=== PATIENT | female | born 1990 | race Caucasian/White ===

== ENCOUNTER → 2016-10-05 | Outpatient (CLI) | payer BC ==
[~2016-10-05] MED LIST: ALBU1AER9 INH; CETI10TA84 PO; CHOL100010 PO; DIPH25CA65 PO; DIPHCRE TOP; ETONMIS VAGRING; FLUT0.15 NAE; LACTCAP3 PO; MOME0.1C33 TOP
== END | disposition home or self-care (01) ==
LOC: C.PAPS 12:12
PROVIDERS: ATTEND Obstetrics & Gynecology
DX: Z01.419 Encounter for gynecological examination (general) (routine) without abnormal findings (principal)

== ENCOUNTER → 2017-11-09 | Outpatient (CLI) | payer OTHER ==
[~2017-11-09] MED LIST changes: -DIPHCRE TOP; +DIPHCRE11 TOP
== END | disposition home or self-care (01) ==
LOC: C.LABSPEC 17:53
PROVIDERS: ATTEND Physician Assistant
DX: Z11.3 Encounter for screening for infections with a predominantly sexual mode of transmission (principal)

== ENCOUNTER → 2017-11-09 | Outpatient (CLI) | payer OTHER | END | disposition home or self-care (01) | LOC: C.PAPS 10:15 | PROVIDERS: ATTEND Physician Assistant | DX: Z01.419 Encounter for gynecological examination (general) (routine) without abnormal findings (principal) ==

== ENCOUNTER → 2018-02-03 | Outpatient (CLI) | payer OTHER ==
--- NOTE | 2018-02-03 12:01 | DIAGNOSTIC IMAGING REPORT ---
R KNEE 4 OR MORE VIEWS CLINICAL HISTORY: 27 years-old Female presenting with M25.561 Right knee pain WITH A VIEW WITH [id number], knee buckled last night. TECHNIQUE: Frontal, sunrise, tunnel, and lateral views of the right knee were obtained. COMPARISON: None. FINDINGS: Knee joint congruent. No patellar subluxation. No significant joint effusion. No acute fracture or malalignment. No advanced degenerative change. No radiographic soft tissue abnormality. IMPRESSION: No acute osseous injury. Electronically signed by: Henrik Coronado M.D. 02/03/2018 12:00 PM Dictated Date/Time: 02/03/2018 11:59 AM
== END | disposition home or self-care (01) ==
LOC: C.RAD1850 10:40
PROVIDERS: ATTEND Internal Medicine
DX: M25.561 Pain in right knee (principal)

== ENCOUNTER 2021-03-22 08:02 | Inpatient (IN) ==
[2021-03-22] MEDS ORDERED: OXYTOCIN 30 UNITS/500 ML BAG IV PRN ×2 (08:09→17:35)
--- NOTE | 2021-03-22 08:22 | History & Physical Report ---
Date of Service March 22, 2021 Assessment & Plan Admission and Anticipated Discharge Date Admission Date: March 22, 2021 IUP at 39+ weeks in active labor patient would like an unmedicated if possible see orders continue monitoring for now because of variable deceleration on initial assessment. History of Present Illness Primary Care Provider: NO PCP Patient is a 31 yo white female EDC 03/24/21 who presents with regular contractions which have been getting closer and stronger for several hours. Ctns started at 2300 last night. (+) blood show (-)SPROM. uncomplicated. GBS negative Allergies Allergy/AdvReac Type Severity Reaction Status Date / Time Penicillins Allergy Intermediate RASH Verified 03/19/21 15:10 Home Medications Medication Instructions Recorded Confirmed Type Juice Plus 16 tabs PO DAILY 11/27/20 03/19/21 History famotidine 20 mg PO BID #20 tab 11/27/20 03/19/21 Rx ondansetron 4 mg PO Q6H PRN #14 tab 11/27/20 03/19/21 Rx prenat.vits,obi,icz-mfud-fxlyk 1 tab PO DAILY 11/27/20 03/19/21 History [ Vitamin] Patient History Medical History Abdominal pain Encounter for gynecological examination without abnormal finding Encounter for IUD removal Nausea and vomiting during Surgical History S/P tooth extraction Family History Family/Other Myocardial infarction Father Hypertension Kidney disease Aunt Uterus cancer Paternal Aunt, Dx at age 46 Denies family history of Pancreatic cancer Ovarian cancer Prostate cancer Diabetes Breast cancer Colorectal cancer Social History Smoking Status: Never smoker Hx Alcohol Use: Yes Hx Substance Use: No Preferred Language: Latvian Communication Ability: Effective Visual Impairment: No Limitations Hearing Ability: Normal Water Quality Specialist Required: No marital status: marital status details: Aramis (30) [phone] Current Living Situation: Spouse Current Living Situation Comment: lives with spouse, 2 children. current occupational status: employed current occupation: [employer] Feels Safe at Home: Yes Childhood Exposure to Second-Hand Smoke: No Dental Care, Regularly: Yes Physical Activity Frequency: Other Seatbelt Use: always Sunscreen Use: Yes Sexual Activity: has been sexually active within the last 12 months Review of Systems All systems reviewed & are unremarkable except as noted in HPI & below Physical Exam Constitutional: WD/WN, vitals as above Respiratory: normal respiratory effort, lungs clear to auscultation Cardiovascular: RRR, no murmur, no edema Gastrointestinal (Abdomen): normal bowel sounds, soft, nontender, no hepatosplenomegaly Psychiatric: A+Ox3, euthymic affect Genitourinary: OB Exam Abdomen: + vertex and + estimated weight (7-8 pounds) Manual OB Exam: + cervical dilation 5 cm, + cervical effacement 90% and + station (posterior) -1 OB Exam Monitor Tracing: + external FHT monitor used, + external uterine monitor used, + category II (one moderate variable with quick recovery during a contraction) and + normal FHT variability Coding Level of Care Code None
[2021-03-22 08:34] LABS: Hematocrit (blood only) 38.9 % (37-47); Mean Corpuscular Hemoglobin 26.9 pg (25-34); Mean Corpuscular Hgb Conc 33.4 g/dL (32-36); Mean Corpuscular Volume 80.5 fL (80-100); Mean Platelet Volume 10.4 fL (7.4-10.4); Platelet Count 301 K/uL (130-400); RDW Coefficient of Variation 14.2 % (11.5-14.5); RDW Standard Deviation 41.9 fL (36.4-46.3); Red Blood Count 4.83 M/uL (4.2-5.4); White Blood Count 12.48 K/uL (4.8-10.8)
--- NOTE | 2021-03-22 13:03 | Obstetrical Progress Note ---
Date of Service March 22, 2021 Assessment & Plan Admission and Anticipated Discharge Date Admission Date: March 22, 2021 continue current plan Subjective SPROM for clear fluid contractions stronger requesting to be checked Review of Systems Review of Systems: All systems reviewed & are unremarkable except as noted in HPI & below Physical Exam Constitutional: WD/WN, vitals as above Psychiatric: A+Ox3, euthymic affect Genitourinary: OB Exam Abdomen: + estimated weight (7-8 pounds) Manual OB Exam: + cervical dilation 5 cm, + cervical effacement 100%, + station -2 and + amniotic fluid clear forewaters present- patient agreeable to AROM- large amount of clear fluid Results & Data ([facility]) Vital Signs (Past 12 Hours) Vital Signs Temp Pulse Resp BP 03/22/21 12:15 98.1 F 101 H 16 133/87 03/22/21 08:56 20 03/22/21 08:54 98 H 20 126/77 PG Care Time/CCT Total # of Minutes Spent Total Time Spent with Patient: Total time spent is greater than 50% in coordination of care (as documented) at patient's floor/unit and/or counseling patient: Coding Level of Care Code None
[2021-03-22] MEDS: LACTATED RINGER'S 1,000 ML IV PRN ×2 (14:04→15:19)
[2021-03-22] MEDS ORDERED: fentaNYL 2MCG/ML ROPIVACAINE 1.25MG/ML 100 ML BAG EPI ONE (14:07)
[2021-03-22] MEDS ORDERED: SODIUM CHLORIDE 0.9% INJ 10 ML VIAL ONE (14:07)
[2021-03-22] MEDS ORDERED: BUPIVACAINE 0.25% 30 ML VIAL ONE (14:07)
[2021-03-22] MEDS ORDERED: fentaNYL citrate 100 MCG/2 ML VIAL ONE (14:07)
[2021-03-22] MEDS ORDERED: ePHEDrine sulfate 50 MG/ML AMP ONE (14:07)
--- NOTE | 2021-03-22 15:12 | Anesthesiology Consultation ---
Date of Service March 22, 2021 Assessment & Plan Chart Review Chart Review: Acceptable Risk for Labor Epidural Consults Requested none History Height/Weight Height: 5 ft 4 in Weight: 84.55 kg Allergies Allergy/AdvReac Type Severity Reaction Status Date / Time Penicillins Allergy Intermediate RASH Verified 03/19/21 15:10 Medications Home Medications Medication Instructions Recorded Confirmed Last Taken Juice Plus 16 tabs PO DAILY 11/27/20 03/22/21 03/21/21 08:00 famotidine 20 mg PO BID #20 tab 11/27/20 03/22/21 03/18/21 20:00 ondansetron 4 mg PO Q6H PRN #14 tab 11/27/20 03/22/21 03/01/21 08:00 Active Medications Generic Name Dose Route Start Last Admin Trade Name Freq PRN Reason Stop Dose Admin Lactated Ringer's 1,000 mls @ 125 mls/hr 03/22/21 08:09 03/22/21 14:04 Lr IV 03/24/21 08:08 999 mls/hr .Q8H PRN Administration L&D Protocol Protocol Past Medical History Medical History Abdominal pain Diverticulitis (~11/27/20) Encounter for gynecological examination without abnormal finding Encounter for IUD removal Nausea and vomiting during Past Family History Family History Family/Other Myocardial infarction Father Hypertension Kidney disease Aunt Uterus cancer Paternal Aunt, Dx at age 46 Denies family history of Pancreatic cancer Ovarian cancer Prostate cancer Diabetes Breast cancer Colorectal cancer Past Surgical History Surgical History S/P tooth extraction Social History Smoking Status: Never smoker Do You Dip or Chew Tobacco: No Hx Alcohol Use: No Hx Substance Use: No substance use type: does not use Physical Exam Vital Signs Last Vital Signs Temp 36.8 C 03/22/21 13:18 Pulse 107 H 03/22/21 15:08 Resp 16 03/22/21 12:15 BP 124/80 03/22/21 15:08 Pulse Ox 100 03/22/21 15:07 Testing Laboratory Results 03/22/21 08:15
[2021-03-22] MEDS ORDERED: fentaNYL 2MCG/ML ROPIVACAINE 1.25MG/ML 100 ML BAG EPI PRN (15:14)
[2021-03-22] MEDS ORDERED: diphenhydrAMINE 50 MG/ML VIAL IV PRN (15:14)
[2021-03-22] MEDS ORDERED: NALOXONE HCL 1 MG in SODIUM CHLORIDE 0.9% 1000ML 1,000 ML IV PRN (15:14)
[2021-03-22] MEDS ORDERED: NALOXONE HCL 0.4 MG/1 ML VIAL/CARP IV PRN (15:14)
[2021-03-22] MEDS ORDERED: ePHEDrine sulfate 50 MG/ML AMP IV PRN (15:14)
[2021-03-22] MEDS ORDERED: SUPERCREAM 0.870% 15 GM JAR EXT PRN (17:35)
[2021-03-22] MEDS ORDERED: HYDROCORTISONE ACETATE 25 MG SUPP PR PRN (17:35)
[2021-03-22] MEDS ORDERED: DIPHTHERIA/TETANUS/PERTUSSIS 0.5 ML SYR/VIAL IM ONE (17:35)
[2021-03-22] MEDS ORDERED: bisacodyL 10 MG SUPP PR PRN (17:35)
[2021-03-22] MEDS ORDERED: BENZOCAINE 20% AER SPR 82.5 GM CAN EXT PRN (17:35)
--- NOTE | 2021-03-22 20:08 | Anesthesia Procedure Note ---
Date of Service March 22, 2021 Anesthesia Post Epidural Note Vital Signs Vital Signs: Temp Pulse Resp BP Pulse Ox 36.7 C 113 H 18 123/67 99 03/22/21 17:30 03/22/21 19:32 03/22/21 17:30 03/22/21 19:32 03/22/21 18:27 Pain Intensity Bilateral Back: Pain Intensity: 6 Notes Mental Status: alert / awake / arousable Nausea / Vomiting: adequately controlled Pain: adequately controlled Airway Patency, RR, SpO2: stable & adequate BP & HR: stable & adequate Hydration State: stable & adequate Neuraxial Anesthesia: was administered and sensory block is resolving Anesthetic Complications: no major complications apparent and Pt Satisfied with anesthetic care Epidural: Removed without complications and With tip intact
[2021-03-22] MEDS: IBUPROFEN 600 MG TAB PO PRN (21:07)
[2021-03-22] MEDS: DOCUSATE SODIUM 100 MG CAP PO SCH (21:07)
[2021-03-22] MEDS: ACETAMINOPHEN 325 MG TAB PO PRN (23:59)
[2021-03-23] MEDS: IBUPROFEN 600 MG TAB PO PRN ×2 (06:47→13:24)
--- NOTE | 2021-03-23 07:50 | Obstetrical Progress Note ---
Date of Service March 23, 2021 Assessment & Plan (1) Encounter for care and examination after delivery: 31yo Day 1 s/p . Doing well. Stable for discharge Subjective Ambulation: ambulating normally Voiding: no voiding problems Passing Gas:: Yes Diet Tolerance:: regular diet Lochia:: Moderate Feeding Type:: breast feeding Physical Exam Constitutional WD/WN, vitals as above Respiratory normal respiratory effort; no respiratory distress and no labored breathing Gastrointestinal (Abdomen) Inspection/Auscultation: abdomen normal to inspection; abdomen not distended Percussion/Palpation: abdomen soft; abdomen nontender, no guarding and abdomen not rigid Genitourinary OB Exam Abdomen: + fundal height Fundus: + firm and + relation to umbilicus (Below); not tender and not boggy Results & Data ([facility]) Vital Signs (Past 12 Hours) Vital Signs Temp Pulse Resp BP Pulse Ox 03/23/21 04:10 36.7 C 80 18 112/75 03/22/21 23:45 36.9 C 71 18 117/70 03/22/21 19:55 36.9 C 95 H 18 129/78 98
[2021-03-23] MEDS: DOCUSATE SODIUM 100 MG CAP PO SCH (07:52)
[2021-03-23] MEDS ORDERED: PRENATAL VITAMIN 1 TAB PO SCH (08:00)
--- NOTE | 2021-03-23 08:05 | Delivery Summary ---
DATE OF PROCEDURE: 03/22/2021. PROCEDURE: Normal spontaneous vaginal delivery. SURGEON: Marck Simon MD PREOPERATIVE DIAGNOSES: 1. Single intrauterine at 39 weeks 5 days gestational age. 2. Spontaneous labor. POSTOPERATIVE DIAGNOSES: 1. Single intrauterine at 39 weeks 5 days gestational age. 2. Spontaneous labor. 3. Status post procedure. ESTIMATED BLOOD LOSS: 200 mL. DRAINS: None. FLUIDS: Continuous lactated Ringer. URINE OUTPUT: Not measured. COMPLICATIONS: None. FINDINGS: Viable female with weight and Apgars pending. DESCRIPTION OF PROCEDURE: The patient progressed to 10 cm dilated, 100% effaced, positive 2 station, pushed over intact perineum over approximately 7 contractions to achieve delivery. Head of the neon ate delivered in KELLY position, rest to right transverse. A loose nuchal cord x1 was noted, which was easily reduced and body and shoulders quickly followed. was noted to be vigorous upon deliv ivan and a 1-minute delayed cord clamping was initiated. Cord was doubly clamped and cut. Cord blood was obtained. Attention was then turned to delivery of the placenta, which was delivered intact wit h 3-vessel cord, gentle cord traction. On inspection of the perineum, vagina, and cervix, there were noted to be no lacerations. Needle, sponge, and instrument counts were correct at the completion of the case. Both mother and were stable in the immediate post-delivery period. Job ID: [id number]
[2021-03-23] MEDS: ACETAMINOPHEN 325 MG TAB PO PRN (16:35)
[2021-03-23] MEDS ORDERED: bisacodyL 5 MG TABEC PO SCH (20:00)
== END 2021-03-23 18:10 | disposition home or self-care (01) | DRG 807 ==
LOC: OPB 08:02 → 4S1 08:03 → 4S2 20:05

== ENCOUNTER 2024-12-28 16:39 | Inpatient (IN) ==
[2024-12-28] MEDS ORDERED: OXYTOCIN 30 UNITS/NSS 30 UNITS/500 ML BAG IV PRN (16:56)
[2024-12-28] MEDS ORDERED: LIDOCAINE 1% LOCAL 20 ML VIAL INFIL PRN (16:56)
[2024-12-28] MEDS: LACTATED RINGER'S 1,000 ML IV PRN (17:06)
[2024-12-28 17:26] LABS: Hematocrit (blood only) 41.4 % (37.0-47.0); Hemoglobin 13.8 g/dl (12.0-16.0); Mean Corpuscular Hemoglobin 27.7 pg (25.0-34.0); Mean Corpuscular Hgb Conc 33.3 g/dL (32.0-36.0); Mean Platelet Volume 11.2 fL (9.4-12.4); Platelet Count 272 K/uL (130-400); RDW Coefficient of Variation 14.2 % (11.5-14.5); RDW Standard Deviation 42.5 fL (36.4-46.3); Red Blood Count 4.99 M/uL (4.20-5.40); White Blood Count 15.87 K/ul (4.8-10.8)
--- NOTE | 2024-12-28 17:54 | Anesthesiology Consultation ---
Date of Service December 28, 2024 Assessment & Plan (1) Encounter for pre-operative examination: Chart Review Chart Review: Acceptable Risk for Labor Epidural History Height/Weight Height: 5 ft 5 in Weight: 90.265 kg Allergies Allergy/AdvReac Type Severity Reaction Status Date / Time Penicillins Allergy Intermediate RASH Verified 12/26/24 09:38 Medications Home Medications Medication Instructions Recorded Confirmed Last Taken 21-iron fu-folic acid PO 05/15/24 12/26/24 Unknown [ Complete] cholecalciferol (vitamin D3) 125 125 mcg PO DAILY 07/03/24 12/26/24 Unknown mcg (5,000 unit) capsule pyridoxine (vitamin B6) 10 mg 10 mg PO BID 07/03/24 12/26/24 Unknown tablet ondansetron HCl 4 mg tablet 4 mg PO Q6H PRN nausea and 07/17/24 12/26/24 Unknown vomiting #30 tabs famotidine [Pepcid] PO 12/12/24 12/26/24 Unknown Active Medications Generic Name Dose Route Start Last Admin Trade Name Freq PRN Reason Stop Dose Admin Lactated Ringer's 1,000 mls @ 125 mls/hr 12/28/24 16:56 12/28/24 17:06 Lr IV 12/29/24 16:55 999 mls/hr .Q8H PRN Administration L&D Protocol Protocol Past Medical History Medical History History of chicken pox Swelling of skin Diverticulitis (~11/27/20) Encounter for IUD removal Sinusitis Abdominal pain Past Family History Family History Family/Other Myocardial infarction Father Hypertension Kidney disease Aunt Uterus cancer Paternal Aunt, Dx at age 46 Denies family history of Pancreatic cancer Ovarian cancer Prostate cancer Diabetes Breast cancer Colorectal cancer Past Surgical History Surgical History S/P colonoscopy S/P tooth extraction Social History Smoking Status: Never smoker Do You Dip or Chew Tobacco: No Hx Alcohol Use: No Hx Substance Use: No substance use type: does not use Physical Exam Vital Signs Last Vital Signs Temp 36.9 C 12/28/24 16:56 Pulse 120 H 12/28/24 16:56 Resp 16 12/28/24 16:56 BP 134/88 12/28/24 16:56 Testing Laboratory Results 12/28/24 17:11
--- NOTE | 2024-12-28 17:57 | History & Physical Report ---
Date of Service December 28, 2024 Assessment & Plan (1) Elderly multigravida: Plan: 34 yo at 39 3/7 wga presents in labor VSS Fetus cat 2 w/ occ variables but good variability and accels, reassuring in b/w. Improves with repositioning Labor - expectant management GBS neg desires epidural Admission and Anticipated Discharge Date Admission Date: December 28, 2024 History of Present Illness Chief Complaint: labor Primary Care Provider: Blelo Gay MD 34 yo at 39 3/7 wga presents w/ ctx increasing in frequency and intensity. +FM; denies ctx, LOF, VB. 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 G2 SAB G3 2009 at 41 wks G4 2020 at 39 wks G5 current denies hx stis 06/2023 neg cotest Allergies Allergy/AdvReac Type Severity Reaction Status Date / Time Penicillins Allergy Intermediate RASH Verified 12/26/24 09:38 Home Medications Medication Instructions Recorded Confirmed Type 21-iron fu-folic acid PO 05/15/24 12/26/24 History [ Complete] cholecalciferol (vitamin D3) 125 125 mcg PO DAILY 07/03/24 12/26/24 History mcg (5,000 unit) capsule pyridoxine (vitamin B6) 10 mg 10 mg PO BID 07/03/24 12/26/24 History tablet ondansetron HCl 4 mg tablet 4 mg PO Q6H PRN nausea and 07/17/24 12/26/24 Rx vomiting #30 tabs famotidine [Pepcid] PO 12/12/24 12/26/24 History Patient History Medical History (Updated 12/28/24 @ 17:53 by Michael Paige MD) History of chicken pox Swelling of skin Diverticulitis (~11/27/20) Encounter for IUD removal Sinusitis Abdominal pain Surgical History S/P colonoscopy S/P tooth extraction Family History Family/Other Myocardial infarction Father Hypertension Kidney disease Aunt Uterus cancer Denies family history of Pancreatic cancer Ovarian cancer Prostate cancer Diabetes Breast cancer Colorectal cancer Social History (Updated 05/15/24 @ 10:54 by Noemi Alberto Smoking Status: Never smoker Second Hand Exposure: No; Do You Dip or Chew Tobacco: No; Hx Alcohol Use: No Hx Substance Use: No Preferred Language: Swedish Communication Ability: Effective Visual Impairment: No Limitations Hearing Ability: Normal Investigative Writer Required: No Beliefs That Will Affect Care: None marital status: marital status details: Aramis Greene (34) [phone] Current Living Situation: Spouse and Family Current Living Situation Comment: Lives at home with and 3 year old daughter current occupational status: unemployed 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 Feels Safe at Home: Yes Childhood Exposure to Second-Hand Smoke: No caffeine: No Dental Care, Regularly: Yes Physical Activity Frequency: 3-4 Times per Week Seatbelt Use: always Sunscreen Use: Yes Sexual Activity: has been sexually active within the last 12 months Assistive Devices: None Physical Exam Genitourinary: OB Exam Abdomen: + vertex and + estimated weight (8-9) Manual OB Exam: + cervical dilation 3 cm, + cervical effacement 60% and + station -2 OB Exam Monitor Tracing: + external FHT monitor used, + external uterine monitor used (q2-3) and + category II (145/mod/+accel/intermit variables) Results & Data Vital Signs (Past 12 Hours) Vital Signs Temp Pulse Resp BP 12/28/24 16:56 98.4 F 120 H 16 134/88 12/28/24 16:48 120 H 134/88 Laboratory Results OB Labs: Blood Type B Positive 05/22/24 Antibody Screen NEGATIVE 05/22/24 Hgb 12.8 g/dl (12.0-16.0) 10/10/24 Hct 38.0 % (37.0-47.0) 10/10/24 MCV 83.3 fL (80.0-100.0) 05/22/24 Plt Count 344 K/uL (130-400) 05/22/24 Rubella IgG Antibody Immune (Immune) 05/22/24 RPR Nonreactive (Nonreactive) 08/12/20 Treponema pallidum Ab Negative (Negative) 10/10/24 Hep Bs Antigen Negative (Negative) 05/22/24 Hepatitis C Antibody Negative (Negative) 05/22/24 HIV 1&2 Ab/P24 Ag 4thGn Negative (Negative) 05/22/24 Glucose 1 Hr 50 gm 151 mg/dl (70-130) H 10/10/24 OB Optional Labs: Chlamydia trachomatis RNA Not Detected (NotDetected) 05/22/24 Neisseria gonorrhoeae RNA Not Detected (NotDetected) 05/22/24 Thyroid Stimulating Hormone (TSH) 1.013 uIu/ml (0.300-4.500) 12/19/24 Labs Reviewed: declines genetic screening-[facility] pap wnl 08/05/20 GBS neg Diagnostic Findings ant plac Coding Level of Care Code None Diagnoses Elderly multigravida O09.529
[2024-12-28] MEDS: fentANYL 2 MCG/ML BUPIVacaine 0.125%-NSS 100ML BAG ONE (18:21)
[2024-12-28] MEDS ORDERED: ePHEDrine sulfate 50 MG/ML AMP IV PRN (18:27)
[2024-12-28] MEDS ORDERED: ROPIVACAINE 0.5% PF 5 MG/ML 20 ML VIAL EPI PRN (18:27)
[2024-12-28] MEDS ORDERED: NALOXONE HCL 0.4 MG/1 ML VIAL/CARP IV PRN (18:27)
[2024-12-28] MEDS ORDERED: SODIUM CHLORIDE 0.9% PF INJ 10 ML VIAL EPI PRN (18:27)
[2024-12-28] MEDS ORDERED: NALOXONE HCL 1 MG in SODIUM CHLORIDE 0.9% 1,000 ML IV PRN (18:27)
[2024-12-28] MEDS ORDERED: fentaNYL citrate PF 100 MCG/2 ML VIAL EPI PRN (18:27)
[2024-12-28] MEDS ORDERED: LIDOCAINE 2% MPF LOCAL 5 ML VIAL EPI PRN (18:27)
[2024-12-28] MEDS ORDERED: ONDANSETRON INJ 2 MG/ML 2 ML VIAL IV PRN (18:27)
[2024-12-28] MEDS ORDERED: BUPIVACAINE 0.25% PF 30 ML VIAL EPI PRN (18:27)
[2024-12-28] MEDS: fentaNYL citrate PF 100 MCG/2 ML VIAL ONE (18:32)
[2024-12-28] MEDS: BUPIVACAINE 0.25% PF 30 ML VIAL ONE (18:33)
[2024-12-28] MEDS: BUPIVACAINE 0.25% PF 30 ML VIAL EPI STA (18:59)
[2024-12-28] MEDS: SODIUM CHLORIDE 0.9% PF INJ 10 ML VIAL ONE (18:59)
[2024-12-28] MEDS: LIDOCAINE 2%/EPINEPHRINE 1:200,000 20 ML PF EPI STA (18:59)
[2024-12-28] MEDS: ePHEDrine sulfate 50 MG/ML AMP ONE (18:59)
[2024-12-28] MEDS: SODIUM CHLORIDE 0.9% PF INJ 10 ML VIAL EPI STA (18:59)
[2024-12-28] MEDS: LIDOCAINE 2%/EPINEPHRINE 1:200,000 20 ML PF ONE (18:59)
[2024-12-28] MEDS: fentaNYL citrate PF 100 MCG/2 ML VIAL EPI STA (18:59)
[2024-12-28] MEDS: CALCIUM CARBONATE 500 MG CHEWABLE TAB PO PRN (19:22)
[2024-12-28] MEDS: CALCIUM CARBONATE 500 MG CHEWABLE TAB ONE (19:25)
--- NOTE | 2024-12-29 00:46 | Labor Progress Brief Note ---
Date of Service December 29, 2024 Subjective comfortable w/ epidural Assessment & Plan (1) Elderly multigravida: Plan: 34 yo at 39 3/7 wga presents in labor VSS Fetus cat 2 w/ occ variables but good variability and accels, reassuring in b/w. Improves with repositioning Labor - SVE 8cm on this check and last by nursing, will start pit GBS neg epidural in place Admission and Anticipated Discharge Date Admission Date: December 28, 2024 Physical Exam Genitourinary: OB Exam Monitor Tracing: + external FHT monitor used, + external uterine monitor used (q2-3) and + category II (150/mod/+accel/intermit variables) Results & Data Vital Signs (Past 12 Hours) Vital Signs Temp Pulse Resp BP Pulse Ox 12/29/24 00:42 125 H 95 12/29/24 00:41 124 H 93 12/29/24 00:37 115 H 97 12/29/24 00:34 117 H 133/75 12/29/24 00:32 114 H 96 12/29/24 00:27 113 H 96 12/29/24 00:22 126 H 97 12/29/24 00:19 118 H 135/74 12/29/24 00:17 127 H 96 12/29/24 00:12 125 H 96 12/29/24 00:07 124 H 95 12/29/24 00:05 114 H 134/72 12/29/24 00:02 124 H 96 12/28/24 23:57 119 H 95 12/28/24 23:52 118 H 94 12/28/24 23:50 115 H 127/61 12/28/24 23:47 119 H 96 12/28/24 23:42 114 H 96 12/28/24 23:37 117 H 96 12/28/24 23:35 111 H 127/63 12/28/24 23:32 104 H 95 12/28/24 23:27 115 H 95 12/28/24 23:22 121 H 96 12/28/24 23:20 99.1 F 12/28/24 23:19 113 H 127/64 12/28/24 23:17 118 H 98 12/28/24 23:12 96 H 96 12/28/24 23:07 94 H 98 12/28/24 23:05 97 H 129/71 12/28/24 23:02 94 H 97 12/28/24 22:57 101 H 98 12/28/24 22:52 98 H 97 12/28/24 22:49 110 H 112/62 12/28/24 22:47 112 H 99 12/28/24 22:42 128 H 98 12/28/24 22:37 106 H 99 12/28/24 22:35 134 H 112/62 12/28/24 22:32 113 H 99 12/28/24 22:27 125 H 99 12/28/24 22:22 115 H 98 12/28/24 22:20 118 H 127/73 12/28/24 22:17 112 H 99 12/28/24 22:12 125 H 98 12/28/24 22:11 117 H 87 L 12/28/24 22:07 112 H 99 12/28/24 22:04 111 H 127/72 12/28/24 22:02 106 H 99 12/28/24 21:57 118 H 98 12/28/24 21:52 101 H 99 12/28/24 21:50 97 H 129/72 12/28/24 21:47 117 H 98 12/28/24 21:42 104 H 98 12/28/24 21:37 116 H 99 12/28/24 21:35 105 H 137/75 12/28/24 21:32 106 H 99 12/28/24 21:27 111 H 99 12/28/24 21:25 112 H 91 12/28/24 21:22 114 H 99 12/28/24 21:20 98.4 F 12/28/24 21:19 123 H 105/66 12/28/24 21:17 112 H 98 12/28/24 21:12 111 H 99 12/28/24 21:11 101 H 93 12/28/24 21:07 99 H 98 12/28/24 21:04 114 H 112/64 12/28/24 21:02 111 H 99 12/28/24 20:57 115 H 99 12/28/24 20:52 103 H 100 12/28/24 20:49 121 H 123/69 12/28/24 20:47 116 H 100 12/28/24 20:42 105 H 100 12/28/24 20:37 103 H 100 12/28/24 20:35 114 H 123/68 12/28/24 20:32 106 H 100 12/28/24 20:27 118 H 100 12/28/24 20:22 107 H 100 12/28/24 20:20 93 H 121/70 12/28/24 20:17 99 H 99 12/28/24 20:12 122 H 87 L 12/28/24 20:11 105 H 87 L 12/28/24 20:07 114 H 100 12/28/24 20:05 125 H 108/66 12/28/24 20:02 106 H 100 12/28/24 19:57 106 H 99 12/28/24 19:52 92 H 100 12/28/24 19:50 105 H 118/60 12/28/24 19:47 97 H 100 12/28/24 19:42 112 H 98 12/28/24 19:37 96 H 99 12/28/24 19:34 94 H 123/71 12/28/24 19:32 87 98 12/28/24 19:27 103 H 99 12/28/24 19:22 109 H 98 12/28/24 19:19 96 H 120/73 12/28/24 19:17 116 H 99 12/28/24 19:12 91 H 98 12/28/24 19:07 118 H 99 12/28/24 19:05 98.2 F 20 12/28/24 19:02 89 100 12/28/24 19:00 114 H 117/71 12/28/24 18:57 87 100 12/28/24 18:56 112 H 126/71 12/28/24 18:52 96 H 100 12/28/24 18:51 112 H 134/75 12/28/24 18:47 95 H 100 12/28/24 18:45 120 H 118/67 12/28/24 18:43 102 H 131/79 12/28/24 18:42 103 H 100 12/28/24 18:41 117 H 120/73 12/28/24 18:39 110 H 123/73 12/28/24 18:37 100 12/28/24 18:37 103 H 12/28/24 18:37 126 H 119/68 12/28/24 18:35 105 H 18 124/71 12/28/24 18:33 106 H 117/71 12/28/24 18:32 108 H 100 12/28/24 18:31 110 H 117/67 12/28/24 18:30 16 12/28/24 18:30 16 12/28/24 18:29 121 H 95/50 L 12/28/24 18:27 98 12/28/24 18:27 121 H 12/28/24 18:27 117 H 116/62 12/28/24 18:25 16 12/28/24 18:25 16 12/28/24 18:23 101 H 120/64 12/28/24 18:22 102 H 95 12/28/24 18:21 102 H 117/60 12/28/24 18:20 89 118/65 12/28/24 18:17 98 12/28/24 18:17 89 12/28/24 18:17 92 H 88 L 12/28/24 18:12 123 H 78 L 12/28/24 18:07 123 H 100 12/28/24 18:02 116 H 99 12/28/24 16:56 98.4 F 120 H 16 134/88 12/28/24 16:48 120 H 134/88 Coding Level of Care Code None Diagnoses Elderly multigravida O09.529
[2024-12-29] MEDS: OXYTOCIN 30 UNITS/NSS 30 UNITS/500 ML BAG IV PRN (00:50)
[2024-12-29] MEDS: FAMOTIDINE 20MG IV PUSH 20 MG/5 ML SYR IV STA (01:40)
[2024-12-29] MEDS: fentANYL 2 MCG/ML BUPIVacaine 0.125%-NSS 100ML BAG EPI PRN (03:50)
--- NOTE | 2024-12-29 03:50 | Labor Progress Brief Note ---
Date of Service December 29, 2024 Subjective comfortable w/ epidural. Nursing reported more persistent variables while I was attending a delivery that have improved Assessment & Plan (1) Elderly multigravida: Plan: 34 yo at 39 3/7 wga presents in labor VSS Fetus cat 2 w/ intermittent variables but continues to have good variability and accels in b/w. Given reassuring status in b/w and good progression, discussed trying amnioinfusion and pt agreeable. IUPC placed, will have 250cc LR bolus and 200/hr after Labor - pit at 6, now 9cm GBS neg epidural in place Admission and Anticipated Discharge Date Admission Date: December 28, 2024 Physical Exam Genitourinary: Manual OB Exam: + cervical dilation 9 cm, + cervical effacement 90% and + station + 1 OB Exam Monitor Tracing: + external FHT monitor used, + intra-uterine pressure catheter used (placed, q2-4) and + category II (150/mod/+accel/intermit variables) Results & Data Vital Signs (Past 12 Hours) Vital Signs Temp Pulse Resp BP Pulse Ox 12/29/24 03:42 110 H 100 12/29/24 03:37 102 H 98 12/29/24 03:35 95 H 135/75 12/29/24 03:32 98 H 99 12/29/24 03:27 96 H 99 12/29/24 03:22 94 H 99 12/29/24 03:20 98 H 136/76 12/29/24 03:17 93 H 100 12/29/24 03:12 113 H 100 12/29/24 03:08 108 H 92 12/29/24 03:07 107 H 98 12/29/24 03:04 96 H 141/90 H 12/29/24 03:02 95 H 95 12/29/24 02:57 104 H 98 12/29/24 02:52 97 12/29/24 02:52 120 H 12/29/24 02:52 110 H 94 12/29/24 02:50 113 H 127/68 12/29/24 02:47 109 H 96 12/29/24 02:42 111 H 95 12/29/24 02:37 101 H 96 12/29/24 02:34 107 H 152/74 H 12/29/24 02:32 119 H 96 12/29/24 02:30 99.5 F 95 H 94 12/29/24 02:27 106 H 95 12/29/24 02:25 109 H 94 12/29/24 02:22 107 H 94 12/29/24 02:19 101 H 12/29/24 02:19 100 H 138/77 94 12/29/24 02:17 111 H 94 12/29/24 02:13 115 H 93 12/29/24 02:12 119 H 94 12/29/24 02:08 126 H 92 12/29/24 02:07 121 H 96 12/29/24 02:04 104 H 138/77 12/29/24 02:02 117 H 93 12/29/24 01:57 98 H 94 12/29/24 01:52 94 12/29/24 01:52 105 H 12/29/24 01:52 99 H 93 12/29/24 01:49 112 H 145/73 H 12/29/24 01:47 105 H 95 12/29/24 01:46 115 H 94 12/29/24 01:42 109 H 95 12/29/24 01:40 123 H 93 12/29/24 01:37 117 H 96 12/29/24 01:35 127 H 92 12/29/24 01:34 130 H 141/80 H 12/29/24 01:32 135 H 91 12/29/24 01:28 152 H 90 12/29/24 01:27 145 H 94 12/29/24 01:22 117 H 96 12/29/24 01:19 125 H 125/69 12/29/24 01:17 120 H 95 12/29/24 01:12 99 H 94 12/29/24 01:10 96 H 93 12/29/24 01:07 108 H 93 12/29/24 01:05 109 H 132/78 12/29/24 01:02 115 H 95 12/29/24 00:57 118 H 96 12/29/24 00:55 99.1 F 12/29/24 00:52 110 H 97 12/29/24 00:50 114 H 129/78 12/29/24 00:47 118 H 98 12/29/24 00:42 125 H 95 12/29/24 00:41 124 H 93 12/29/24 00:37 115 H 97 12/29/24 00:34 117 H 133/75 12/29/24 00:32 114 H 96 12/29/24 00:27 113 H 96 12/29/24 00:22 126 H 97 12/29/24 00:19 118 H 135/74 12/29/24 00:17 127 H 96 12/29/24 00:12 125 H 96 12/29/24 00:07 124 H 95 12/29/24 00:05 114 H 134/72 12/29/24 00:02 124 H 96 12/28/24 23:57 119 H 95 12/28/24 23:52 118 H 94 12/28/24 23:50 115 H 127/61 12/28/24 23:47 119 H 96 12/28/24 23:42 114 H 96 12/28/24 23:37 117 H 96 12/28/24 23:35 111 H 127/63 12/28/24 23:32 104 H 95 12/28/24 23:27 115 H 95 12/28/24 23:22 121 H 96 12/28/24 23:20 99.1 F 12/28/24 23:19 113 H 127/64 12/28/24 23:17 118 H 98 12/28/24 23:12 96 H 96 12/28/24 23:07 94 H 98 12/28/24 23:05 97 H 129/71 12/28/24 23:02 94 H 97 12/28/24 22:57 101 H 98 12/28/24 22:52 98 H 97 12/28/24 22:49 110 H 112/62 12/28/24 22:47 112 H 99 12/28/24 22:42 128 H 98 12/28/24 22:37 106 H 99 12/28/24 22:35 134 H 112/62 12/28/24 22:32 113 H 99 12/28/24 22:27 125 H 99 12/28/24 22:22 115 H 98 12/28/24 22:20 118 H 127/73 12/28/24 22:17 112 H 99 12/28/24 22:12 125 H 98 12/28/24 22:11 117 H 87 L 12/28/24 22:07 112 H 99 12/28/24 22:04 111 H 127/72 12/28/24 22:02 106 H 99 12/28/24 21:57 118 H 98 12/28/24 21:52 101 H 99 12/28/24 21:50 97 H 129/72 12/28/24 21:47 117 H 98 12/28/24 21:42 104 H 98 12/28/24 21:37 116 H 99 12/28/24 21:35 105 H 137/75 12/28/24 21:32 106 H 99 12/28/24 21:27 111 H 99 12/28/24 21:25 112 H 91 12/28/24 21:22 114 H 99 12/28/24 21:20 98.4 F 12/28/24 21:19 123 H 105/66 12/28/24 21:17 112 H 98 12/28/24 21:12 111 H 99 12/28/24 21:11 101 H 93 12/28/24 21:07 99 H 98 12/28/24 21:04 114 H 112/64 12/28/24 21:02 111 H 99 12/28/24 20:57 115 H 99 12/28/24 20:52 103 H 100 12/28/24 20:49 121 H 123/69 12/28/24 20:47 116 H 100 12/28/24 20:42 105 H 100 12/28/24 20:37 103 H 100 12/28/24 20:35 114 H 123/68 12/28/24 20:32 106 H 100 12/28/24 20:27 118 H 100 12/28/24 20:22 107 H 100 12/28/24 20:20 93 H 121/70 12/28/24 20:17 99 H 99 12/28/24 20:12 122 H 87 L 12/28/24 20:11 105 H 87 L 12/28/24 20:07 114 H 100 12/28/24 20:05 125 H 108/66 12/28/24 20:02 106 H 100 12/28/24 19:57 106 H 99 12/28/24 19:52 92 H 100 12/28/24 19:50 105 H 118/60 12/28/24 19:47 97 H 100 12/28/24 19:42 112 H 98 12/28/24 19:37 96 H 99 12/28/24 19:34 94 H 123/71 12/28/24 19:32 87 98 12/28/24 19:27 103 H 99 12/28/24 19:22 109 H 98 12/28/24 19:19 96 H 120/73 12/28/24 19:17 116 H 99 12/28/24 19:12 91 H 98 12/28/24 19:07 118 H 99 12/28/24 19:05 98.2 F 20 12/28/24 19:02 89 100 12/28/24 19:00 114 H 117/71 12/28/24 18:57 87 100 12/28/24 18:56 112 H 126/71 12/28/24 18:52 96 H 100 12/28/24 18:51 112 H 134/75 12/28/24 18:47 95 H 100 12/28/24 18:45 120 H 118/67 12/28/24 18:43 102 H 131/79 12/28/24 18:42 103 H 100 12/28/24 18:41 117 H 120/73 12/28/24 18:39 110 H 123/73 12/28/24 18:37 100 12/28/24 18:37 103 H 12/28/24 18:37 126 H 119/68 12/28/24 18:35 105 H 18 124/71 12/28/24 18:33 106 H 117/71 12/28/24 18:32 108 H 100 12/28/24 18:31 110 H 117/67 12/28/24 18:30 16 12/28/24 18:30 16 12/28/24 18:29 121 H 95/50 L 12/28/24 18:27 98 12/28/24 18:27 121 H 12/28/24 18:27 117 H 116/62 12/28/24 18:25 16 12/28/24 18:25 16 12/28/24 18:23 101 H 120/64 12/28/24 18:22 102 H 95 12/28/24 18:21 102 H 117/60 12/28/24 18:20 89 118/65 12/28/24 18:17 98 12/28/24 18:17 89 12/28/24 18:17 92 H 88 L 12/28/24 18:12 123 H 78 L 12/28/24 18:07 123 H 100 12/28/24 18:02 116 H 99 12/28/24 16:56 98.4 F 120 H 16 134/88 12/28/24 16:48 120 H 134/88 Coding Level of Care Code None Diagnoses Elderly multigravida O09.529
[2024-12-29 07:03] LABS: Base Excess Cord Venous Blood -7.3 mEq/L (-7.7-1.9); Cord Venous Blood HCO3 18 mmol/L (18.4-26.8); Cord Venous Blood PCO2 36 mmHg (30.4-57.2); Cord Venous Blood PO2 28 mmHg (14.1-43.3); Cord Venous Blood pH 7.31 (7.20-7.44); O2 Saturation Cord Venous Bld < 60.0 % (<68)
[2024-12-29 07:05] LABS: Base Excess Cord Arterial Bld -10.3 mEq/L (-9-1.8); CO2 Cord Arterial Blood 45 mmHg (39.1-73.5); HCO3 Cord Arterial Blood 18 mmol/L (19.7-28.5); Oxygen Sat Cord Arterial Blood < 60.0 % (<60); PO2 Cord Arterial Blood 29 mmHg (4.1-31.7)
--- NOTE | 2024-12-29 07:06 | Delivery Summary ---
Vaginal Delivery Summary Date of Service December 29, 2024 Vaginal Delivery Summary [facility] PREOPERATIVE DIAGNOSIS: 1. Single intrauterine at 39 4/7 2. Labor 3. AMA POSTOPERATIVE DIAGNOSIS: 1. Single intrauterine at 39 4/7 2. Labor 3. AMA 4. Shoulder dystocia 5. Delivered PROCEDURE: 1. Normal spontaneous vaginal delivery. SURGEON: Nisha Parker MD ANESTHESIA: Epidural. QUANTITATIVE BLOOD LOSS: 25 mL FLUIDS: Continuous LR. URINE OUTPUT: 100cc by straight cath COMPLICATIONS: None. CONDITION: Stable. INDICATIONS: 34 yo at 39 4/7 presented in labor at 5cm. She received an epidural and underwent srom. She continued to progress to 8cm but did not p rogress so pitocin started. During this time, intermittent variables occurred so amnioinfusion was started to help. She then progressed to complete and desired to push. FINDINGS: A viable male , weight pending with Apgars of 7 and 9 at 1 and 5 minutes respectively. SPECIMEN: Cord blood, cord gas OPERATIVE REPORT: The patient progressed to 10 cm, 100% effaced and +2 station, pushed over intact perineum with anesthesia to deliver a viable male infant, weight and Apgars as above. Head of delivered in TEMO position. Nuchal cord was attempted to be reduced but could not be fully reduced - however it was loosened. Body and shoulders did not deliver with gentle downward traction so shoulder dystocia was called. Head of bed lowered and McRobert's maneuve and suprapubic pressure were performed but did not deliver. Rotational maneuver was performed which then delivered anterior shoulder atraumatically. Remainder of body delivered atraumatically. was delivered to maternal abdomen and nursing staff. Cord was clamped and cut. Cord blood was obtained. Placenta delivered spontaneously intact with 3-vessel cord. IV oxytocin and fundal massage were given for excellent hemostasis. Vagina, cervix, perineum, and placenta were inspected. No lacerations were noted. Sponge and needle counts correct x2. No sponges were left behind. Mother and stable in immediate period. Events of delivery were reviewed with patient and , questions answered to apparent satisfaction. Total shoulder dystocia time 1 min 40 sec [facility] Vaginal Delivery Charge Vaginal Delivery Codes: 89122 global code for the antepartum, delivery, and post- Delivery Type Details: [facility]
[2024-12-29] MEDS ORDERED: bisacodyL 10 MG SUPP PR PRN (07:07)
[2024-12-29] MEDS ORDERED: OXYTOCIN 30 UNITS/NSS 30 UNITS/500 ML BAG IV PRN (07:07)
[2024-12-29] MEDS ORDERED: HYDROCORTISONE ACETATE 25 MG SUPP PR PRN (07:07)
--- NOTE | 2024-12-29 07:40 | Anesthesia Procedure Note ---
Date of Service December 29, 2024 Anesthesia Post Epidural Note Vital Signs Vital Signs: Temp Pulse Resp BP Pulse Ox 37.3 C 92 H 20 122/70 98 12/29/24 05:30 12/29/24 07:25 12/29/24 06:55 12/29/24 07:25 12/29/24 06:52 Notes Mental Status: alert / awake / arousable and participated in evaluation Nausea / Vomiting: adequately controlled Pain: adequately controlled Airway Patency, RR, SpO2: stable & adequate BP & HR: stable & adequate Hydration State: stable & adequate Neuraxial Anesthesia: was administered and sensory block is resolving Anesthetic Complications: no major complications apparent Epidural: Removed without complications and With tip intact
[2024-12-29] MEDS: IBUPROFEN 600 MG TAB PO PRN (08:33)
[2024-12-29] MEDS: BENZOCAINE 20% SPRY 85 APPLN/85 GM CAN EXT PRN (08:33)
[2024-12-29] MEDS: DIPHTHER/TETAN/PERTUS Vaccine (Tdap, Adol/Adult) 0.5mL IM ONE (08:33)
[2024-12-29] MEDS: PRENATAL VITAMIN 1 TAB PO SCH (08:33)
[2024-12-29] MEDS: DOCUSATE SODIUM 100 MG CAP PO SCH (08:33)
[2024-12-29] MEDS ORDERED: LIDOCAINE 2% JELLY 5 ML TUBE EXT ONE (09:39)
[2024-12-29] MEDS: ACETAMINOPHEN 325 MG TAB PO PRN (11:52)
[2024-12-30 03:38] VITALS: TEMP 97.7
--- NOTE | 2024-12-30 06:20 | Obstetrical Progress Note ---
Date of Service December 30, 2024 Assessment & Plan (1) Elderly multigravida: (2) Encounter for care and examination after delivery: Plan Ambulate as tolerated Pain control with Tylenol or ibuprofen Discharge to home Follow up with in 6 weeks Admission and Anticipated Discharge Date Admission Date: December 28, 2024 Supervising Physician Co-Signing Physician Notes Patient seen with resident and agree with the above findings and plan. Stable for discharge. Doing well Subjective Pt is 34 yo post- day 1 s/p at 39w3d Ambulation:In room Voiding:voiding normally Passing gas: yes BM: no Diet tolerance:regular diet Lochia:bloody, no clots Feeding type: breast Current pain level: 0-3 /10 improved with ibuprofen Resting comfortably this morning in NAD. Denies JENKINS, CP, SOB, N/V/D, LE pain/swelling. Review of Systems Review of Systems: As per HPI Physical Exam Constitutional: WD/WN, vitals as above Respiratory: normal respiratory effort, lungs clear to auscultation Cardiovascular: RRR, no murmur, no edema Gastrointestinal (Abdomen): normal bowel sounds, soft, nontender, no hepatosplenomegaly Uterine fundus firm and at 1 cm above umbilicus Neurologic: PERRL, EOMI, accommodation nl, no face palsy, no dysarthria Moving all 4 extremities on command Psychiatric: A+Ox3, euthymic affect Results & Data Vital Signs (Past 12 Hours) Vital Signs Temp Pulse Resp BP Pulse Ox O2 Del Method 12/30/24 03:15 36.5 C 89 18 128/82 96 Room Air 12/30/24 00:07 36.6 C 91 H 18 113/80 96 Room Air 12/29/24 19:30 36.3 C L 91 H 18 129/83 97 Room Air Resident Activity Tracking Resident Involvement: Resident Care Provided Care Provided: Adult Hospital Medicine
--- NOTE | 2024-12-30 07:33 | Obstetrical Progress Note ---
Date of Service December 30, 2024 Assessment & Plan Admission and Anticipated Discharge Date Admission Date: December 28, 2024 Results & Data Vital Signs (Past 12 Hours) Vital Signs Temp Pulse Resp BP Pulse Ox O2 Del Method 12/30/24 03:15 36.5 C 89 18 128/82 96 Room Air 12/30/24 00:07 36.6 C 91 H 18 113/80 96 Room Air
[2024-12-30 09:48] VITALS: BP 121/71; PULSE 87; RESP 16; O2SAT 98
[2024-12-30] MEDS ORDERED: bisacodyL 5 MG TABEC PO SCH (20:00)
== END 2024-12-30 13:30 | disposition home or self-care (01) | DRG 807 ==
LOC: OPB 16:39 → 4S1 16:41 → 4E1 12-29 11:38